=== PATIENT | female | born 1955 | race Caucasian/White ===

== ENCOUNTER 2023-02-16 08:38 | Outpatient (CLI) | payer MEDICARE, OTHER ==
[2023-02-16] MEDS ORDERED: Magnevist 469MG/ML 20 ML VIAL ONE (13:24)
== END 2023-02-16 08:39 | disposition home or self-care (01) ==
LOC: CSHMRI 08:38
PROVIDERS: ATTEND Psychiatry & Neurology Neurology
DX: G62.9 Polyneuropathy, unspecified (principal); Z98.890 Other specified postprocedural states; M47.816 Spondylosis without myelopathy or radiculopathy, lumbar region
CPT/HCPCS: 72158; A9579

== ENCOUNTER 2023-03-23 08:38 | Outpatient (CLI) | payer MEDICARE, OTHER | END 2023-03-23 08:39 | disposition home or self-care (01) | LOC: CSHMAMMO 08:38 | PROVIDERS: ATTEND Nurse Practitioner Family | DX: Z12.31 Encounter for screening mammogram for malignant neoplasm of breast (principal) | CPT/HCPCS: 77063; 77067 ==